=== PATIENT | female | born 1985 | race Two or more races ===

== ENCOUNTER 2018-02-19 10:34 | Inpatient (IN) | payer OTHER ==
[~2018-02-19] VITALS: Ht 175.3 cm; Wt 108.4 kg
[2018-03-27] MEDS ORDERED: PRENATAL FORMU1 EAC1 PO (18:02)
== END 2018-03-30 13:27 | disposition home or self-care (01) | DRG 807 ==
LOC: LDR 03-27 16:31 → SURG-SUITE 03-27 16:31 → OB/GYN 03-29 09:30 → EDSEX 03-29 09:30 → SURG-SUITE 03-30 13:27
PROVIDERS: ADMIT Obstetrics & Gynecology
PROC: 4A1HXCZ Monitoring of Products of Conception, Cardiac Rate, External Approach (ICD-10-PCS; 2018-03-27)
PROC: 10E0XZZ Delivery of Products of Conception, External Approach (ICD-10-PCS; principal; 2018-03-28)
PROC: 0UQGXZZ Repair Vagina, External Approach (ICD-10-PCS; 2018-03-28)
PROC: 0W8NXZZ Division of Female Perineum, External Approach (ICD-10-PCS; 2018-03-28)
DX: O71.4 Obstetric high vaginal laceration alone (principal); Z37.0 Single live birth; Z3A.39 39 weeks gestation of pregnancy

== ENCOUNTER 2018-03-27 10:11 | Outpatient (CLI) | payer OTHER ==
[2018-03-27] MEDS ORDERED: PRENATAL FORMU1 EAC1 PO (18:02)
== END 2018-03-27 12:01 | disposition home or self-care (01) ==
LOC: NST 10:11
DX: Z34.83 Encounter for supervision of other normal pregnancy, third trimester (principal)

== ENCOUNTER 2021-04-08 11:57 | Emergency (ER) | payer OTHER ==
[~2021-04-08] VITALS: Ht 177.8 cm; Wt 93.9 kg
[~2021-04-08 11:57] MED LIST: PRENATAL FORMU1 EAC1 PO
== END 2021-04-08 16:27 | disposition home or self-care (01) ==
LOC: ER 11:57
DX: N39.0 Urinary tract infection, site not specified (principal); R10.32 Left lower quadrant pain

== ENCOUNTER 2021-04-15 13:18 | Outpatient (CLI) | payer OTHER | END 2021-04-15 13:25 | disposition home or self-care (01) | LOC: LAB 13:18 | PROVIDERS: ATTEND Obstetrics & Gynecology | DX: N30.00 Acute cystitis without hematuria (principal) ==

== ENCOUNTER → 2021-04-15 | Outpatient (CLI) | payer OTHER | END | disposition home or self-care (01) | LOC: SONOGRAMA 11:58 | PROVIDERS: ATTEND Obstetrics & Gynecology | DX: N30.00 Acute cystitis without hematuria (principal) ==

== ENCOUNTER 2023-12-07 04:31 | Outpatient (CLI) | payer OTHER ==
[~2023-12-07] VITALS: Ht 172.7 cm; Wt 102.1 kg
[2023-12-07 03:46] VITALS: BP 112/76; BP 122/76; O2SAT 99
[2023-12-07] MEDS ORDERED: PRENATAL MULTI1 EAC3 PO (04:42)
[2023-12-07 07:27] VITALS: BP 116/68
[2023-12-07 09:11] VITALS: BP 116/68
== END 2023-12-07 09:38 | disposition home or self-care (01) ==
LOC: OBS/DEL 04:31
PROVIDERS: ATTEND Obstetrics & Gynecology
DX: O26.893 Other specified pregnancy related conditions, third trimester (principal); Z3A.38 38 weeks gestation of pregnancy; R10.2 Pelvic and perineal pain

== ENCOUNTER 2023-12-15 08:41 | Outpatient (CLI) | payer OTHER ==
[~2023-12-15 08:41] MED LIST changes: +PRENATAL MULTI1 EAC3 PO
== END 2023-12-15 11:11 | disposition still patient (30) ==
LOC: NST 08:41
PROVIDERS: ATTEND Obstetrics & Gynecology Gynecology
DX: Z34.83 Encounter for supervision of other normal pregnancy, third trimester (principal)

== ENCOUNTER 2023-12-15 11:09 | Inpatient (IN) | payer OTHER ==
[~2023-12-15] VITALS: Ht 162.6 cm; Wt 102.1 kg
[2023-12-15] MEDS ORDERED: RINGERS SOLUTION,LACTATED 1,000 ML IV SCH (11:30)
[2023-12-15 12:00] VITALS: BP 125/78; O2SAT 99
[2023-12-15 12:57] LABS: HEMATOCRIT 37.3 % (36.0-45.00); HEMOGLOBIN 12.3 g/dL (12.0-15.00); MEAN CELL VOLUME 74.9 fL (80.00-100.00); MEAN CORPUSCULAR HEMOGLOBIN 24.6 pg (27.00-32.0); MEAN CORPUSCULAR HGB CONC 32.9 g/dl (32.0-36.0); PLATELET COUNT 263 K/uL (150-450); RED BLOOD COUNT 4.98 M/uL (4.00-6.00); RED CELL DISTRIBUTION WIDTH 15.4 % (11.5-14.5)
[2023-12-15 13:11] LABS: PH,URINE 6.5 (5.0-8.0); URINE APPEARANCE Clear; URINE BILIRRUBIN Negative (NEGATIVE); URINE BLOOD Negative; URINE COLOR Yellow; URINE GLUCOSE Negative (NEGATIVE); URINE KETONE Trace (NEGATIVE); URINE LEUKOCYTE Negative; URINE NITRATE Negative; URINE PROTEIN Trace (NEGATIVE)
[2023-12-15 13:13] LABS: URINE BACTERIA 1122.5 uL (0.0-1933); URINE EPITHELIAL CELLS 27.3 uL (0.0-38.8); URINE RBC 4.1 uL (0.0-20.8); URINE WBC 16.2 uL (0.0-23.2)
[2023-12-15 13:46] LABS: INR 0.96; PARTIAL THROMBOPLASTIN TIME 29.6 SECONDS (22.0-34.0); PROTHROMBIN TIME 10.5 SECONDS (9.0-11.5)
[2023-12-15 14:24] LABS: ALBUMIN 2.8 gm/dL (3.4-5.0); BILIRUBIN TOTAL 0.5 mg/dL (0.3-1.2); CREATININE SERUM 0.61 mg/dL (0.55-1.02); GFR 110.98; GLOBULINA 3.9 G/DL (2.4-3.5); POTASSIUM 4.41 mEq/L (3.5-5.1); TOTAL PROTEIN 6.7 gm/dL (6.4-8.2)
[2023-12-15 15:46] VITALS: BP 114/74
[2023-12-15 18:45] VITALS: BP 118/74
[2023-12-15 23:24] VITALS: BP 131/76
[2023-12-16] VITALS (9 sets, daily range): BP systolic 106–124; BP diastolic 60–74
[2023-12-16] MEDS ORDERED: OXYTOCIN 500 ML IV ONE (08:00)
[2023-12-16] MEDS ORDERED: MORPHINE SULFATE 4 MG/ML CARTRIDGE IV STA (11:40)
[2023-12-16] MEDS ORDERED: POVIDONE-IODINE 118 ML BOTT TOP ONE ×2 (17:30→18:45)
[2023-12-16] MEDS ORDERED: METHYLERGONOVINE MALEATE 0.2 MG/ML AMPUL IV ONE ×2 (17:45→18:45)
[2023-12-16] MEDS ORDERED: OXYTOCIN 10 UNITS/ML VIAL IV ONE ×2 (17:45→18:45)
[2023-12-16] MEDS ORDERED: METHYLERGONOVINE MALEATE 0.2 MG/ML AMPUL IV STA (18:21)
[2023-12-16] MEDS ORDERED: IBUprofen 400 MG TABLET PO PRN (18:30)
[2023-12-16] MEDS ORDERED: CHLORHEXIDINE GLUCONATE 120 ML BOTTLE TP NR (18:30)
[2023-12-16] MEDS ORDERED: OXYTOCIN 1,000 ML IV SCH (18:30)
[2023-12-16] MEDS ORDERED: ERYTHROMYCIN BASE OPHT 1GM EACH TUBE OP ONE (18:45)
[2023-12-16 20:10] LABS: HEMATOCRIT 33.9 % (36.0-45.00); HEMOGLOBIN 10.9 g/dL (12.0-15.00); MEAN CELL VOLUME 74.5 fL (80.00-100.00); MEAN CORPUSCULAR HEMOGLOBIN 23.9 pg (27.00-32.0); PLATELET COUNT 308 K/uL (150-450); RED BLOOD COUNT 4.55 M/uL (4.00-6.00); RED CELL DISTRIBUTION WIDTH 15.5 % (11.5-14.5)
[2023-12-16] MEDS ORDERED: CEFAZOLIN SODIUM 2,000 MG in 0.9 % SODIUM CHLORIDE 100 ML IV SCH (21:00)
[2023-12-17] MEDS ORDERED: METHYLERGONOVINE MALEATE 0.2 MG/ML AMPUL IM SCH
[2023-12-17 00:32] VITALS: BP 98/66
[2023-12-17 08:00] VITALS: BP 93/62
[2023-12-17 08:15] LABS: MEAN CELL VOLUME 75.1 fL (80.00-100.00); PLATELET COUNT 276 K/uL (150-450); RED BLOOD COUNT 3.47 M/uL (4.00-6.00); RED CELL DISTRIBUTION WIDTH 15.3 % (11.5-14.5)
[2023-12-17 08:18] LABS: HEMOGLOBIN 8.3 g/dL (12.0-15.00); MEAN CORPUSCULAR HEMOGLOBIN 23.9 pg (27.00-32.0)
[2023-12-17] MEDS ORDERED: DOCUSATE SODIUM 100MG CAP PO SCH (09:00)
[2023-12-17] MEDS ORDERED: HYDROCORTISONE 2.5% 30 GM TUBE RECTAL SCH (09:00)
[2023-12-17] MEDS ORDERED: MULTIVIT INFUSN,ADULT 4,VIT K 10 ML VIAL IV SCH (09:01)
[2023-12-17] MEDS ORDERED: FF) RHO(D) IMMUNE GLOBULIN (POM) IM ONE (13:15)
[2023-12-17] MEDS ORDERED: OxyCODONE HCL/APAP UD (PERCOCET) PO PRN (19:15)
[2023-12-17 20:37] VITALS: BP 101/65
[2023-12-18 01:20] VITALS: BP 103/61
[2023-12-18 07:58] VITALS: BP 102/65
[2023-12-18] MEDS ORDERED: SOD FERRIC GLUC COMPLX/SUCROSE 125 MG in 0.9 % SODIUM CHLORIDE 100 ML IV SCH (09:00)
== END 2023-12-18 13:38 | disposition home or self-care (01) | DRG 768 ==
LOC: LDR 11:09 → OB/GYN 11:09
PROVIDERS: Obstetrics & Gynecology; Obstetrics & Gynecology Gynecology; ADMIT Obstetrics & Gynecology; ATTEND Obstetrics & Gynecology
PROC: 4A1HXCZ Monitoring of Products of Conception, Cardiac Rate, External Approach (ICD-10-PCS; 2023-12-15)
PROC: 0UQC7ZZ Repair Cervix, Via Natural or Artificial Opening (ICD-10-PCS; 2023-12-16)
PROC: 0KQM0ZZ Repair Perineum Muscle, Open Approach (ICD-10-PCS; 2023-12-16)
PROC: 10E0XZZ Delivery of Products of Conception, External Approach (ICD-10-PCS; 2023-12-16)
PROC: 10D17Z9 Manual Extraction of Products of Conception, Retained, Via Natural or Artificial Opening (ICD-10-PCS; principal; 2023-12-16 16:15)
DX: O70.1 Second degree perineal laceration during delivery (principal); O71.3 Obstetric laceration of cervix; O73.0 Retained placenta without hemorrhage; Z37.0 Single live birth; Z3A.39 39 weeks gestation of pregnancy; Z20.822 Contact with and (suspected) exposure to COVID-19

== ENCOUNTER 2023-12-27 16:22 | Inpatient (IN) | payer OTHER ==
[~2023-12-27] VITALS: Ht 172.7 cm; Wt 89.8 kg
--- NOTE | 2023-12-27 16:43 | NUR ---
PTE ALERTA,ESTABLE Y ORIENTADA.ESTA REFIERE QUE DESDE NEEMA COMENZO CON EL SANGRADO VAGINAL,FIEBRE Y FATIGA.ESTA FUE MATILDE DE GIANCARLO EL VIERNES PASADO CUANDO LA OPERADRON PARA REMOVER LA PLACENTA DE EMERGENCIA.PTE DEL
[2023-12-27] MEDS ORDERED: 0.9 % SODIUM CHLORIDE 1,000 ML IV STA (16:58)
--- NOTE | 2023-12-27 17:05 | NUR ---
PTE FEMENINA EVALUADA POR . SE ORIENTA SOBRE ORDENES DE [place] REFIERE COMRPENDER. SE COELCTAN MUESTRAS DE LABORATORIOS Y SE CANALIZA VENA BAJO MEDIDAS ASEPTICAS. SE ADMINISTRAN LIQUIDOS INTRAVENSOS, TAMAR ORDEN EMDICA,. SE NOTIFICA A SONOGRAFIA ESTUDIO PENDIENTE.
[2023-12-27 17:29] LABS: URINE APPEARANCE Turbid; URINE BILIRRUBIN Negative (NEGATIVE); URINE BLOOD Large; URINE COLOR Red; URINE GLUCOSE Negative (NEGATIVE); URINE KETONE Negative (NEGATIVE); URINE LEUKOCYTE Large; URINE NITRATE Negative; URINE UROBILINOGEN 0.2 E.U./dl
[2023-12-27 17:32] LABS: URINE BACTERIA 1746.3 uL (0.0-1933); URINE EPITHELIAL CELLS 13.7 uL (0.0-38.8); URINE RBC 2482.3 uL (0.0-20.8)
[2023-12-27 17:35] LABS: MEAN CELL VOLUME 73.4 fL (80.00-100.00); MEAN CORPUSCULAR HGB CONC 32.1 g/dl (32.0-36.0); PLATELET COUNT 341 K/uL (150-450); RED BLOOD COUNT 2.93 M/uL (4.00-6.00); RED CELL DISTRIBUTION WIDTH 16.7 % (11.5-14.5)
[2023-12-27 17:41] LABS: URINE CAST 1.06 uL (0.0-1.40); URINE PROTEIN 100 (NEGATIVE); URINE WBC > 5548.3 uL (0.0-23.2)
[2023-12-27 17:44] LABS: INR 1.1; PARTIAL THROMBOPLASTIN TIME 30.3 SECONDS (22.0-34.0); PROTHROMBIN TIME 11.3 SECONDS (9.0-11.5)
[2023-12-27 17:48] LABS: CALCIUM 8.4 mg/dL (8.5-10.1); CREATININE SERUM 0.55 mg/dL (0.55-1.02); GFR 125.06; POTASSIUM 3.3 mEq/L (3.5-5.1)
[2023-12-27 17:55] LABS: HEMATOCRIT 21.5 % (36.0-45.00); HEMOGLOBIN 6.9 g/dL (12.0-15.00); MEAN CORPUSCULAR HEMOGLOBIN 23.5 pg (27.00-32.0)
--- NOTE | 2023-12-27 18:12 | NUR ---
SE COLECTAN TUBOS PILOTOS PARA DOS UNIDADES DE PRBC'S PARA TRANSFUNDIR TAMAR ORDEN MEDICA, BAJO MEDIDAS ASEPTICAS. SE ENTREGA REQUISICION A LABORATORIO APC.
[2023-12-27] MEDS ORDERED: PIPERACILLIN/TAZOBACTAM SODIUM 3.375 GM VIAL IV ONE (19:00)
--- NOTE | 2023-12-27 20:02 | NUR ---
REALIZA CAMBIO EN ORDEN DE TRANSFUSION A 3 UNIDADES DE PRBC'S, SE REALIZA CAMBIO EN REQUISICION EN PRESENCIA DE PERSONAL DE LABORATORIO Y BANCO DE JANEL.
[2023-12-27] MEDS ORDERED: METHYLERGONOVINE MALEATE 0.2 MG/ML AMPUL IM SCH (21:00)
--- NOTE | 2023-12-27 23:16 | NUR ---
SE SOLICITA PANEL DE ANTICUERPO A PACIENTE
--- NOTE | 2023-12-27 23:37 | NUR ---
SE RECIBE PACIENTE ALERTA Y ORIENTADA X3. LA MISMA CANALIZADA EN MANO IZQUIERDA # 20 Y BRAZO IZQUIERDA # 18 PATENTE Y REAGAN DE DOLOR BAJANDO CON EL IVFS DE MANTENIMIENTO. LA MISMA CON 3 UNIDADES DE PRBC COMPLETAS REQUISADAS. PACIENTE CONSULTADO CON DR. PEREZ LA MISMA LEAD GENERATION MARKETING MANAGER TO OR MANANA.
[2023-12-28] MEDS ORDERED: PIPERACILLIN/TAZOBACTAM SODIUM 3.375 GM in DEXTROSE 5 % IN WATER 100 ML IV SCH
[2023-12-28] MEDS ORDERED: ACETAMINOPHEN 500 MG GEL..CAP PO ONE ×2 (00:30→04:30)
--- NOTE | 2023-12-28 03:28 | NUR ---
2:30AM: DR. PEREZ SE COMUNICA A NANCY DE EMERGENCIA PARA SABER ESTATUS DE TRANSFUCIONES DE PACIENTE. DR. JOHNS LE NOTIFICA A DR. PEREZ QUE LA PACIENTE SALIO CON ANTICUERPOS Y QUE BANCO DE JANEL SOLICITO UN PANEL DE ANTICUERPO. DR. PEREZ LE NOTIFICA A DR. JOHNS QUE A LA PACIENTE SE LE ADMINITRO LA VACUNA DE RHOGAM POST PARTO. 3:00am: SE NOTIFICA A Natalie ROTH TECNICA DE LABORATORIO QUE LA PACIENTE TIENE LA VACUNA DE RHOGAM ADMINITRADA EN EARLY PARTO PARA QUE LA MISMA NOTIFIQUE A BANCO DE SANGRO EL HALLAZGO. LA MISMA AL NOTIFICARLE A LA LICENCIA MAGAÑA DE BANCO DE SANGRO LA MISMA REFIERE QUE LOS PANELES DE ANTICUERPO NO SE REALIZAN DE NOCHE Y QUE LA PACIENTE TUVIERA QUE ESPERAR EN AM PARA PODER PROCESAR EL MISMO. 3:20AM: SE NOTIFICA A DR. PEREZ EL RETRASO AL PROCESAR LAS UNIDADES REQUISADAS AL PACIENTE POR EL PANEL DE ANTICUERPOS. SE SUGIERA AL MISMO QUE ESTAN LAS UNIDADES DE EMERGENCIA 0- EN EL HOSPITAL SI QUISIERA TRANSFUNDIRLA EL MISMO INDICA QUE SE ESPERA LAS UNIDADES REQUISADAS. 3:30AM: SE ORIENTA PACIENTE Y FAMILIAR SOBRE EL DELAY EN TRANSFUCION.
[2023-12-28] MEDS ORDERED: RINGERS SOLUTION,LACTATED 1,000 ML IV SCH (04:30)
--- NOTE | 2023-12-28 05:26 | NUR ---
5:20AM: PACIENTE NOTIFICA QUE FUE AL CORRY Y EXPULSO UN COAGULO DEL TAMANO DE FÁTIMA CARIDAD DE TENNIS COLOR SAMUEL BRILLANTE.
[2023-12-28 06:38] LABS: MEAN CELL VOLUME 74.3 fL (80.00-100.00); MEAN CORPUSCULAR HGB CONC 31.9 g/dl (32.0-36.0); PLATELET COUNT 333 K/uL (150-450); RED BLOOD COUNT 3.04 M/uL (4.00-6.00); RED CELL DISTRIBUTION WIDTH 17.2 % (11.5-14.5)
--- NOTE | 2023-12-28 06:44 | NUR ---
6:20AM: PACIENTE REFIERE QUE EXPULSO MAS COAGULOS Y CONTUINUA JANEL VAGINAL. SE NOTIFICA A DR. JOHNS. EL MISMO LLAMA A DR. PEREZ PARA NOTIFICAR HALLAZGOS EL MISMO REFIERE JUAN CBC Y TRANSFUNDIR JANEL 0-. SE CONNER CBC Y SE NOTIFICA A PERSONAL DE LABORATORIO QUE TIENE PRIORIDAD STAT. MR. BEARD NOTIFICA VALOR HGB EN 7.[address] JOHNS CUAL NOTIFICA A DR. PEREZ Y ORDENA NO TRANSFUNDIR PACIENTE CON JANEL O- UNCROSS AL MOMENTO.
[2023-12-28 07:09] LABS: HEMATOCRIT 22.6 % (36.0-45.00); HEMOGLOBIN 7.2 g/dL (12.0-15.00); MEAN CORPUSCULAR HEMOGLOBIN 23.6 pg (27.00-32.0)
--- NOTE | 2023-12-28 07:40 | NUR ---
SE RECIBE PTE ALERTA Y ORIENTADA X3 EN COMPANIA DE FAMILIAR EN CAMMA BAJA Y BARANDAS ELEVADAS POR EARLY SEGURIDAD EN UNIDAD DE NANCY DE ERMERGENCIAS. AL MOMENTO CON EXTREMIDADES SUPERIOIRES LIBRES DE EDEMAY ERITEMA CON 2 CANALIZACIONES #20 Y #18 EN BRAZO Y MANO BERENICE POR EL CUAL ESTA RECIBIENDO R/L @ 150ML/HR. PENDIENTE TRANSFUSION DE 3 UNIDADES PRBC Y COMNSULTA CON EL DR YU.
[2023-12-28] MEDS ORDERED: MEPERIDINE HCL/PF 25 MG/ML VIAL IV ONE (09:45)
[2023-12-28 10:51] VITALS: BP 101/62; O2SAT 100
[2023-12-28] MEDS ORDERED: MORPHINE SULFATE 4 MG/ML VIAL IV ONE (12:00)
[2023-12-28 12:20] VITALS: BP 85/56
[2023-12-28] MEDS ORDERED: CARBOPROST TROMETHAMINE 250 MCG/ML AMPUL IM ONE (15:45)
[2023-12-28 16:00] VITALS: BP 92/63
[2023-12-28] MEDS ORDERED: POVIDONE-IODINE 118 ML BOTT TOP SCH (16:45)
[2023-12-28] MEDS ORDERED: SUGAMMADEX SODIUM 200 MG/2 ML VIAL IV SCH (17:00)
[2023-12-28] MEDS ORDERED: CARBOPROST TROMETHAMINE 250 MCG/ML AMPUL IM SCH (17:30)
[2023-12-28] MEDS ORDERED: CALCIUM GLUCONATE 100 MG/ML VIAL IV SCH (18:45)
[2023-12-28] MEDS ORDERED: CLINDAMYCIN PHOSPHATE 150 MG/ML (900mg) IV SCH (18:45)
[2023-12-28 19:30] LABS: INR 1.15; PROTHROMBIN TIME 12.4 SECONDS (9.0-11.5)
[2023-12-28 19:32] LABS: ALBUMIN 1.7 gm/dL (3.4-5.0); BILIRUBIN TOTAL 0.79 mg/dL (0.3-1.2); CALCIUM 7.3 mg/dL (8.5-10.1); CREATININE SERUM 0.64 mg/dL (0.55-1.02); GLOBULINA 2.6 G/DL (2.4-3.5); POTASSIUM 4.81 mEq/L (3.5-5.1); TOTAL PROTEIN 4.3 gm/dL (6.4-8.2)
[2023-12-28 20:50] LABS: MEAN CELL VOLUME 81.4 fL (80.00-100.00); MEAN CORPUSCULAR HGB CONC 32.3 g/dl (32.0-36.0); PLATELET COUNT 276 K/uL (150-450); RED BLOOD COUNT 2.09 M/uL (4.00-6.00); RED CELL DISTRIBUTION WIDTH 17.3 % (11.5-14.5)
[2023-12-28 20:57] LABS: HEMOGLOBIN 5.5 g/dL (12.0-15.00); MEAN CORPUSCULAR HEMOGLOBIN 26.3 pg (27.00-32.0)
[2023-12-28] MEDS ORDERED: FUROsemide 20 MG/2 ML VIAL IV SCH (22:00)
[2023-12-28] MEDS ORDERED: ACETAMINOPHEN 325 MG TABLET PO STA (22:28)
[2023-12-29] MEDS ORDERED: RINGERS SOLUTION,LACTATED 1,000 ML IV SCH (00:30)
[2023-12-29] MEDS ORDERED: METHYLERGONOVINE MALEATE 0.2 MG/ML AMPUL IM SCH (06:19)
[2023-12-29] MEDS ORDERED: MORPHINE SULFATE 4 MG/ML VIAL IV SCH (08:00)
[2023-12-29] MEDS ORDERED: CLINDAMYCIN PHOSPHATE 150 MG/ML (900mg) IV SCH (09:00)
[2023-12-29] MEDS ORDERED: GENTAMICIN SULFATE 40 MG/ML VIAL IV SCH (09:00)
[2023-12-29 10:38] LABS: HEMATOCRIT 24.2 % (36.0-45.00); MEAN CELL VOLUME 81.2 fL (80.00-100.00); MEAN CORPUSCULAR HGB CONC 33.6 g/dl (32.0-36.0); PLATELET COUNT 317 K/uL (150-450); RED BLOOD COUNT 2.98 M/uL (4.00-6.00)
[2023-12-29 10:41] LABS: HEMOGLOBIN 8.1 g/dL (12.0-15.00); MEAN CORPUSCULAR HEMOGLOBIN 27.1 pg (27.00-32.0)
[2023-12-29] MEDS ORDERED: PIPERACILLIN/TAZOBACTAM SODIUM 4.5 GM in 0.9 % SODIUM CHLORIDE 100 ML IV ONE (12:00)
[2023-12-29 12:17] VITALS: BP 99/64; O2SAT 100
[2023-12-29] MEDS ORDERED: SOD FERRIC GLUC COMPLX/SUCROSE 125 MG in 0.9 % SODIUM CHLORIDE 100 ML IV SCH (12:56)
[2023-12-29 15:24] LABS: ALBUMIN 1.7 gm/dL (3.4-5.0); BILIRUBIN TOTAL 0.52 mg/dL (0.3-1.2); CALCIUM 7.4 mg/dL (8.5-10.1); CREATININE SERUM 0.54 mg/dL (0.55-1.02); GFR 127.74; POTASSIUM 3.99 mEq/L (3.5-5.1); TOTAL PROTEIN 4.7 gm/dL (6.4-8.2)
[2023-12-29 15:52] VITALS: BP 113/54
[2023-12-29] MEDS ORDERED: MORPHINE SULFATE 4 MG/ML CARTRIDGE IV SCH (16:00)
[2023-12-29] MEDS ORDERED: KETOROLAC TROMETHAMINE 10 MG TABLET PO PRN (16:15)
[2023-12-29] MEDS ORDERED: DOCUSATE SODIUM 100MG CAP PO SCH (17:00)
[2023-12-29] MEDS ORDERED: PIPERACILLIN/TAZOBACTAM SODIUM 3.375 GM VIAL IV SCH (17:00)
[2023-12-29 20:23] VITALS: BP 91/62
[2023-12-29] MEDS ORDERED: PIPERACILLIN/TAZOBACTAM SODIUM 3.375 GM in 0.9 % SODIUM CHLORIDE 100 ML IV SCH (21:00)
[2023-12-29] MEDS ORDERED: SIMETHICONE 125 MG CAPSULE PO SCH (21:00)
[2023-12-29 23:16] VITALS: BP 101/54; O2SAT 99
[2023-12-30 03:16] VITALS: BP 98/60; O2SAT 99
[2023-12-30 06:38] LABS: PARTIAL THROMBOPLASTIN TIME 28.7 SECONDS (22.0-34.0); PROTHROMBIN TIME 10.9 SECONDS (9.0-11.5)
[2023-12-30 06:47] LABS: MEAN CELL VOLUME 80.9 fL (80.00-100.00); MEAN CORPUSCULAR HGB CONC 33.9 g/dl (32.0-36.0); PLATELET COUNT 257 K/uL (150-450); RED BLOOD COUNT 2.41 M/uL (4.00-6.00); RED CELL DISTRIBUTION WIDTH 17.3 % (11.5-14.5)
[2023-12-30 07:15] LABS: ALBUMIN 1.6 gm/dL (3.4-5.0); BILIRUBIN TOTAL 0.43 mg/dL (0.3-1.2); CALCIUM 7.7 mg/dL (8.5-10.1); CREATININE SERUM 0.6 mg/dL (0.55-1.02); GFR 113.11; GLOBULINA 2.6 G/DL (2.4-3.5); POTASSIUM 3.57 mEq/L (3.5-5.1); TOTAL PROTEIN 4.2 gm/dL (6.4-8.2)
[2023-12-30 07:17] LABS: HEMATOCRIT 19.5 % (36.0-45.00); MEAN CORPUSCULAR HEMOGLOBIN 27.3 pg (27.00-32.0)
[2023-12-30 07:18] LABS: HEMOGLOBIN 6.6 g/dL (12.0-15.00)
[2023-12-30 07:38] VITALS: BP 95/61
[2023-12-30 11:54] VITALS: BP 94/57
[2023-12-30 15:38] VITALS: BP 90/55
[2023-12-30 20:15] VITALS: BP 96/62
[2023-12-30 23:15] VITALS: BP 100/61; O2SAT 98
[2023-12-31 01:28] LABS: HEMATOCRIT 26.5 % (36.0-45.00); MEAN CELL VOLUME 83.4 fL (80.00-100.00); MEAN CORPUSCULAR HEMOGLOBIN 28.3 pg (27.00-32.0); MEAN CORPUSCULAR HGB CONC 33.9 g/dl (32.0-36.0); PLATELET COUNT 311 K/uL (150-450); RED BLOOD COUNT 3.18 M/uL (4.00-6.00); RED CELL DISTRIBUTION WIDTH 17.2 % (11.5-14.5)
[2023-12-31 03:04] VITALS: BP 104/67
[2023-12-31 06:23] VITALS: BP 104/66; O2SAT 98
[2023-12-31] MEDS ORDERED: HYDROCORTISONE 2.5% 30 GM TUBE RECTAL SCH (09:00)
[2023-12-31 12:01] VITALS: BP 124/79
[2023-12-31 16:00] VITALS: BP 106/70
[2024-01-01 01:47] VITALS: BP 100/58
[2024-01-01 09:02] VITALS: BP 100/66
== END 2024-01-01 10:48 | disposition home or self-care (01) | DRG 769 ==
LOC: ER 16:24 → OB/GYN 12-28 09:58
PROVIDERS: Emergency Medicine; General Practice; Internal Medicine Hematology & Oncology; Internal Medicine Infectious Disease; Obstetrics & Gynecology; Obstetrics & Gynecology Gynecology; ADMIT Obstetrics & Gynecology; ATTEND Obstetrics & Gynecology
PROC: 30233N1 Transfusion of Nonautologous Red Blood Cells into Peripheral Vein, Percutaneous Approach (ICD-10-PCS; 2023-12-28)
PROC: BW4GZZZ Ultrasonography of Pelvic Region (ICD-10-PCS; 2023-12-28)
PROC: 10D17Z9 Manual Extraction of Products of Conception, Retained, Via Natural or Artificial Opening (ICD-10-PCS; principal; 2023-12-28 17:30)
PROC: B246ZZZ Ultrasonography of Right and Left Heart (ICD-10-PCS; 2023-12-30)
DX: O72.0 Third-stage hemorrhage (principal); T81.19XA Other postprocedural shock, initial encounter; O90.81 Anemia of the puerperium; Y65.8 Other specified misadventures during surgical and medical care; Z20.822 Contact with and (suspected) exposure to COVID-19